=== PATIENT | female | born 1955 | race Caucasian/White ===

== ENCOUNTER → 2018-06-18 07:57 | Outpatient (CLI) | payer BC, SELFPAY ==
--- NOTE | 2018-06-18 08:03 | AS_ITS ---
Renal Arterial Duplex Indications: 405.91 Unspecified renovascular hypertension. IMPRESSIONS 1. The right renal artery appears normal. 2. The left renal artery appears normal. Complete renal arterial duplex. Duplex scan and Doppler flow study including spectral analysis, color and gould scale imaging. Height: Height: 162.6cm. Height: 64in. Weight: Weight: 106.1kg. Weight: 233.5lb. Body mass index: BMI: 40.2kg/m^2. Body surface area: BSA: 2.24m^2. Location: Vascular laboratory. Patient status: Outpatient. Tables: Arterial flow: + +-------+--------+ + Location V sys V ed Comment + +-------+--------+ + Right renal - proximal 120cm/s -------- + +-------+--------+ + Right renal - mid 123cm/s 36.9cm/s + +-------+--------+ + Right renal - distal 138cm/s 33.2cm/s + +-------+--------+ + Left renal - proximal 145cm/s 36.9cm/s + +-------+--------+ + Left renal - mid 193cm/s 48.7cm/s + +-------+--------+ + Left renal - distal 229cm/s 57cm/s Elevated velocities may be attributed to a tortuous vessel. + +-------+--------+ + Right renal - Origin 147cm/s 36cm/s + +-------+--------+ + Left renal - Origin 162cm/s 37cm/s + +-------+--------+ + Aorta 100cm/s 14cm/s + +-------+--------+ + Artery mapping: + +--------+-------+ Location Diameter Patency + +--------+-------+ Abdominal aorta - mid 2.1mm Patent + +--------+-------+ Renal anatomy: + +------+------+ Left Right + +------+------+ Long axis 10.2cm 10.1cm + +------+------+ Short axis 3.4cm 4.4cm + +------+------+ Velocity ratios: + +-----+ V sys + +-----+ Right renal/aortic 1.4 + +-----+ Left renal/aortic 2.3 + +-----+ (Report amended ) Electronically signed by: Alexis Zayas [id number]
== END ==
PROVIDERS: PCP Internal Medicine Adolescent Medicine; Visit Provider Internal Medicine
DX: I10 Essential (primary) hypertension (principal); R42 Dizziness and giddiness; R06.02 Shortness of breath; E66.09 Other obesity due to excess calories
CPT/HCPCS: 93976

== ENCOUNTER → 2018-07-31 13:30 | Outpatient (CLI) | payer BC, SELFPAY | PROVIDERS: PCP Internal Medicine Adolescent Medicine; Visit Provider Internal Medicine Adolescent Medicine | DX: I49.9 Cardiac arrhythmia, unspecified (principal) | CPT/HCPCS: 93225; 93226 ==

== ENCOUNTER → 2019-10-18 11:28 | Outpatient (CLI) | payer BC, SELFPAY | PROVIDERS: PCP Internal Medicine Adolescent Medicine; Visit Provider Urology | DX: R00.2 Palpitations (principal); R06.02 Shortness of breath; I10 Essential (primary) hypertension; R06.83 Snoring; R40.0 Somnolence | CPT/HCPCS: 93270 ==

== ENCOUNTER → 2019-10-22 11:03 | Outpatient (CLI) | payer BC, SELFPAY ==
--- NOTE | 2019-10-22 11:08 | CA_ITS ---
APPROVED REPORT EXAM: Comprehensive 2D, Doppler, and color-flow Echocardiogram Filter Tip Catcher: Yolanda Carbone CRT Ht: 5 ft 4 in Wt: 236lbs BSA: 2.10 BP: 128/88 mmHg Indications: sob, htn. sob 2D Dimensions LVOT 1.76 cm (M/F) 1.5-2.5 M-Mode Dimensions RVDd 2.13 cm (0.9-2.6) LVDd 5.84 cm (3.5-5.7) LVDs 3.70 cm (3.5-5.7) IVSd 1.45 cm (0.6-1.1) PWd 0.88 cm (0.6-1.1) EF (Teich) 65.70% FS 36.60% EDV (Teich) 169.20 mL ESV (Teich) 58.10 mL LV Diastology E/A Ratio 1.04 Mitral Valve MV A Velocity 80.00 (40-130 cm/s) Left Ventricle Left atrium is mildly enlarged, left ventricle is normal size, there is no concentric left ventricular hypertrophy, visually estimated ejection fraction 45% with no regional wall motion abnormality. Diastolic parameters are within normal range. Right Ventricle Right atrium and right ventricular normal size and contractility. Aortic Valve Aortic valve is minimally thickened and fibrosed. There is no aortic stenosis aortic insufficiency. Mitral Valve Mitral valve is grossly normal, there is mild mitral regurgitation. Tricuspid Valve Tricuspid valve is grossly normal, there is mild tricuspid regurgitation. Tricuspid regurgitation jet velocity is inadequate for calculation of the right ventricular systolic pressure. Pulmonic Valve Pulmonic valve is poorly visualized. Great Vessels Aortic root is normal size. Pericardium No significant pericardial effusion noted. Conclusion 1. Normal left ventricular size, preserved left ventricular systolic function, visually estimated ejection fraction 55% with no regional wall motion abnormality, diastolic parameters are within normal range. 2. Mild mitral and tricuspid regurgitation 3. No significant pericardial effusion noted. Electronically signed by : Eliazar Lafleur, 10/22/2019 15:06:41
== END ==
PROVIDERS: PCP Internal Medicine Adolescent Medicine; Visit Provider Internal Medicine
DX: R00.2 Palpitations (principal); R06.02 Shortness of breath; I10 Essential (primary) hypertension; R06.83 Snoring; R40.0 Somnolence
CPT/HCPCS: 93306

== ENCOUNTER → 2021-08-09 08:32 | Outpatient (CLI) | payer MEDICARE, SELFPAY ==
[2021-08-09 09:11] LABS: Basophils % 0.3 % (0.1-2.0); Eosinophils # 0.3 K/mm3 (0.0-0.4); Eosinophils % 3.5 % (0.1-12.0); Hematocrit 40.6 % (37.0-47.0); Hemoglobin 12.5 g/dL (12.2-16.2); Lymphocytes # 1.6 K/mm3 (0.7-4.5); Lymphocytes % 17.6 % (10-50); Mean Corpuscular HGB Conc 30.9 g/dL (31.8-35.4); Mean Corpuscular Hemoglobin 29.3 pg (27.0-31.2); Mean Corpuscular Volume 94.8 fl (81-99); Mean Platelet Volume 8.5 fl (7.4-10.4); Monocytes # 0.7 K/mm3 (0.1-1.0); Monocytes % 7.2 % (1.7-9.3); Neutrophils # 6.6 K/mm3 (1.8-7.8); Neutrophils % 71.4 % (37.0-80.0); Platelet Count 259 K/mm3 (142-424); Red Blood Count 4.28 M/mm3 (4.20-5.40); Red Cell Distribution Width 13.6 % (11.5-17.5); White Blood Count 9.2 K/mm3 (4.8-10.8)
[2021-08-09 10:11] LABS: Alanine Aminotransferase 18 U/L (12-78); Albumin Level 4.1 g/dl (3.5-5.0); Albumin/Globulin Ratio 1.4 (1.1-1.8); Alkaline Phosphatase 87 U/L (38-126); Anion Gap 14.6 mEq/L (5-15); Aspartate Amino Transferase 30 U/L (14-36); Bilirubin,Total 0.5 mg/dl (0.2-1.3); Blood Urea Nitrogen 19 mg/dl (7-17); Calcium 9.5 mg/dl (8.4-10.2); Carbon Dioxide 29 mmol/L (22.0-30.0); Chloride 102 mmol/L (98-107); Chol/HDL Ratio 2.2 (1-3.5); Cholesterol 196 mg/dl (140-200); Estimated Glomerular Filt Rate 50 ml/min (>60); GFR (African American) 60 ML/MIN (>60); Globulin 2.9 g/dL (1.3-3.2); Glucose 106 mg/dl (74-100); HDL Cholesterol 91 mg/dl (40-60); Potassium 4.6 mmoL/L (3.5-5.1); Sodium 141 mmol/L (136-145); Triglycerides 154 mg/dl (30-150); VLDL Cholesterol 31 mg/dL (0-40)
[2021-08-09 10:22] LABS: Direct LDL Cholesterol 65.74 mg/dL (100-129)
== END ==
PROVIDERS: Visit Provider Nurse Practitioner Family
DX: I10 Essential (primary) hypertension (principal); E78.5 Hyperlipidemia, unspecified; Z86.2 Personal history of diseases of the blood and blood-forming organs and certain disorders involving the immune mechanism
CPT/HCPCS: 36415; 80053; 80061; 85025

== ENCOUNTER → 2021-10-16 13:27 | Outpatient (POV) | payer MEDICARE, SELFPAY | PROVIDERS: Visit Provider Dermatology | DX: Z00.00 Encounter for general adult medical examination without abnormal findings (principal) ==

== ENCOUNTER 2022-09-02 12:43 | Emergency (ER) | payer MEDICARE, SELFPAY ==
[2022-09-02 12:43] VITALS: BP 175/80; PULSE 78; RESP 18; TEMP 36.8; O2SAT 94; BMI 41.1
--- NOTE | 2022-09-02 13:03 | XR_ITS ---
FINAL REPORT CLINICAL HISTORY: FB FINDINGS: Two views of the chest were obtained. The heart size and pulmonary vascularity are within normal limits. The mediastinum is normal. No acute pulmonary abnormality is identified. There is no pneumothorax. There is a moderate hiatal hernia. No foreign body is identified. The bony thorax is intact. IMPRESSION: No active cardiopulmonary disease. No foreign body is identified. Reviewed, Interpreted and Dictated by Issa Cortés III, MD Transcribed by Belkis Lantigua Authenticated and [facility]
--- NOTE | 2022-09-02 13:15 | PC.NURSE ---
pt back from Xray
--- NOTE | 2022-09-02 13:18 | HMH.EDGENADL ---
Discharge Plan Disposition Patient Disposition: Home, Self-Care Condition: Good Chief Complaint: Skin/Abscess/Foreign Body Prescriptions Prescriptions: No Action aspirin [Adult Low Dose Aspirin] 81 mg tablet,delayed release (DR/EC) 81 mg PO QDAY bupropion HCl 150 mg tablet extended release 24 hr 300 mg PO QAM levocetirizine 5 mg tablet 5 mg PO QHS polyethylene glycol 3350 [Miralax] 17 gram powder in packet 17 g PO ONCE omeprazole 20 mg capsule,delayed release(DR/EC) 20 mg PO DAILY lisinopril 20 mg tablet 20 mg PO DAILY fluticasone propionate 50 mcg/actuation spray,suspension 1 spray INTRANASAL DAILY atorvastatin 40 mg tablet 40 mg PO HS acetaminophen [Tylenol Arthritis Pain] 650 mg tablet extended release 650 mg PO Q12H lorazepam 0.5 mg tablet 2 mg PO DAILY PRN hydrochlorothiazide 25 mg tablet 25 mg PO DAILY Qty: 30 2RF bisoprolol fumarate 10 mg tablet See Rx Instructions .ROUTE .COMPLEX Qty: 90 3RF Dose Instruction: Take 1 tablet by mouth once daily Rx Instructions: Take 1 tablet by mouth once daily Referrals Follow up/Referrals: Luis Angel Hayes MD [Primary Care Provider] - See instructions Activity Restrictions/Add. Instructions Additional Instructions/Restrictions: Please return to the emergency department immediately if you feel worse in any way. Follow-up with your primary care physician in about 3 days if your symptoms have not resolved. Clinical Impressions Clinical Impression: Esophageal foreign body Discharge ED Provider: Mariusz Rae Adult HPI General Chief complaint: Skin/Abscess/Foreign Body Stated complaint: food stuck in throat Time Seen by Provider: 09/02/22 13:18 Mode of Arrival: Ambulatory Source of Information: Patient Limitations: No Limitations Description of Symptoms (Recalled from ER Triage Doc. by RN): c/o hamburger stuck in her throat which happened just prior to arrival, states she is able to take water and other fliuds at home and she vomitied at home but states the she still feels the hamburger in the side of her throat History of Present Illness HPI narrative: The patient presents to the emergency department because of a foreign body sensation in her throat. She was eating chili earlier prior to arrival. She believes that a piece of ground beef is stuck in her esophagus. However, she has been able to tolerate fluids by mouth at home prior to arrival. Related Data Home Medications Medication Instructions Recorded Confirmed aspirin 81 mg tablet,delayed 81 mg PO QDAY 12/01/17 03/05/22 release (Adult Low Dose Aspirin) bupropion HCl 150 mg 24 hr tablet, 300 mg PO QAM 12/01/17 03/05/22 extended release levocetirizine 5 mg tablet 5 mg PO QHS 12/01/17 03/05/22 polyethylene glycol 3350 17 gram 17 g PO ONCE 12/01/17 03/05/22 oral powder packet (Miralax) lisinopril 20 mg tablet 20 mg PO DAILY 02/13/21 03/05/22 omeprazole 20 mg capsule,delayed 20 mg PO DAILY 02/13/21 03/05/22 release acetaminophen 650 mg 650 mg PO Q12H 03/05/22 03/05/22 tablet,extended release (Tylenol Arthritis Pain) atorvastatin 40 mg tablet 40 mg PO HS 03/05/22 03/05/22 fluticasone propionate 50 1 spray intranasal DAILY 03/05/22 03/05/22 mcg/actuation nasal spray,suspension lorazepam 0.5 mg tablet 2 mg PO DAILY PRN 03/05/22 03/05/22 Previous Rx's Medication Instructions Recorded hydrochlorothiazide 25 mg tablet 25 mg PO DAILY #30 tabs 11/03/18 bisoprolol fumarate 10 mg tablet See Rx Instructions .Route 04/18/22 .COMPLEX #90 tabs Allergies Allergy/AdvReac Type Severity Reaction Status Date / Time alprazolam [From XANAX] Allergy Severe S-SWELLS-OR Verified 03/05/22 14:16 AL/THROAT aripiprazole [From ABILIFY] Allergy Severe S-DIFF. Verified 03/05/22 14:16 [facility] Social History Smoking Status: Geovani
[2022-09-02 13:45] VITALS: BP 166/75; PULSE 70; RESP 20; TEMP 36.8; O2SAT 95
== END 2022-09-02 13:46 | disposition home or self-care (01) ==
PROVIDERS: Emergency Provider Emergency Medicine; PCP Internal Medicine Adolescent Medicine
DX: T18.128A Food in esophagus causing other injury, initial encounter (principal); Z79.1 Long term (current) use of non-steroidal anti-inflammatories (NSAID); Z79.51 Long term (current) use of inhaled steroids; Z79.82 Long term (current) use of aspirin; Z79.899 Other long term (current) drug therapy; Z88.8 Allergy status to other drugs, medicaments and biological substances
CPT/HCPCS: 71046; 99283

== ENCOUNTER → 2022-09-05 08:46 | Outpatient (CLI) | payer MEDICARE, SELFPAY ==
--- NOTE | 2022-09-05 08:50 | XR_ITS ---
FINAL REPORT TECHNIQUE: Bone mineral density was calculated of the lumbar spine and hip. CLINICAL HISTORY: . screening FINDINGS: DEXA BONE DENSITY AXIAL SKELETON Using L1-4, the bone mineral density of the spine is 1.020 g/cm2, corresponding to T-score of there is -0.2. Using the left hip, the bone mineral density of the femoral neck is 0.788 g/cm2, corresponding to a T-score of -0.5. NOTE: T-score: Standard deviation compared with peak bone mass of young adult mean. *Following the recommendations of the International Society of Bone densitometry, classification of hip BMD is based on the lower of two T-scores; total hip or femoral neck. IMPRESSION: Normal bone mineral density of the lumbar spine and hip. Reviewed, Interpreted and Dictated by Issa Cortés III, MD Transcribed by Belkis Lantigua Authenticated and . [facility]
== END ==
PROVIDERS: PCP Nurse Practitioner Family; Visit Provider Nurse Practitioner Family
DX: Z78.0 Asymptomatic menopausal state (principal)
CPT/HCPCS: 77080

== ENCOUNTER 2024-07-15 08:39 | Day surgery (SDC) | payer MEDICARE, SELFPAY ==
[2024-07-14 10:43] VITALS: BMI 41.7
[2024-07-15] MEDS: LACTATED RINGERS 1000ML 1,000 ML 25 ML IV (08:48)
[2024-07-15 08:53] VITALS: BP 163/85; PULSE 73; RESP 18; TEMP 36.2; O2SAT 95
[2024-07-15 09:51] VITALS: O2SAT 95
[2024-07-15 10:05] VITALS: BP 131/79; PULSE 61; RESP 14; TEMP 36.3; O2SAT 94
--- NOTE | 2024-07-15 10:06 | HMH.SCOPE ---
Procedure: Date: 07/15/24 Patient Date of :: 1955 Procedure Performed:: Screening colonoscopy Indications:: Colon screening Performing Provider:: Whitney Emery MD Referring Provider:: Luis Angel Hayes MD Sedation:: Propofol Procedure:: After placing the patient in the left lateral decubitus position, the colonoscopy was gently inserted into the rectum and under direct visualization advanced to the cecum which was identified by transillumination in the right lower quadrant, identification of the ileocecal valve, appendiceal orifice, and cecal strap. Color, texture, mucosa, and anatomy of the colon were carefully examined with the scope. Findings:: Anal canal: normal Rectum: normal Sigmoid colon: normal without polyps or inflammatory changes Descending colon: normal without polyps or inflammatory changes Splenic flexure: normal Transverse colon: normal without polyps or inflammatory changes Hepatic flexure: normal Ascending colon: normal without polyps or inflammatory changes Cecum: normal Terminal ileum: not visualized Impression: Normal colonoscopy Recommendations:: Follow up examination in about TEN years or so, sooner if clinically indicated. Complications:: None Estimated blood obtained (mL): 0 Colonoscopy Component Colonoscopy Component Was a colonoscopy performed during today's procedure?: Yes Recommended follow up colonoscopy of at least 10 years?: Yes
[2024-07-15 10:15] VITALS: BP 138/71; PULSE 63; RESP 14; O2SAT 95
[2024-07-15 10:25] VITALS: BP 128/81; PULSE 60; RESP 16; O2SAT 98
[2024-07-15 10:35] VITALS: BP 148/75; PULSE 59; RESP 16; O2SAT 97
== END 2024-07-15 10:33 | disposition home or self-care (01) ==
PROVIDERS: PCP Internal Medicine Adolescent Medicine; Visit Provider Internal Medicine Gastroenterology
PROC: 0DJD8ZZ Inspection of Lower Intestinal Tract, Via Natural or Artificial Opening Endoscopic (ICD-10-PCS; CPT 45378; principal; 2024-07-15 10:00)
DX: Z12.11 Encounter for screening for malignant neoplasm of colon (principal)
CPT/HCPCS: G0121; J7120

== ENCOUNTER 2024-10-19 11:15 | Outpatient (POV) | payer MEDICARE, SELFPAY | END 2024-10-19 23:59 | disposition home or self-care (01) | LOC: SC 10-20 06:52 | PROVIDERS: Visit Provider Dermatology | DX: Z00.00 Encounter for general adult medical examination without abnormal findings (principal) ==

== ENCOUNTER 2024-11-17 13:12 | Outpatient (CLI) | payer MEDICARE, SELFPAY ==
--- NOTE | 2024-11-17 13:15 | US_ITS ---
FINAL REPORT CLINICAL HISTORY: STAGE 3 CHRONIC KIDNEY DISEASE COMPARISON: none FINDINGS: RENAL ULTRASOUND Ultrasound images of the kidneys were obtained. Limited images of the liver parenchyma demonstrates normal echogenicity. The right kidney measures 10.0 cm in length. The left kidney measures 11.3 cm in length. There is a 13 mm cyst in the mid left kidney. The kidneys are normal in size. There is no hydronephrosis. Kidneys demonstrate a normal echo pattern. IMPRESSION: Unremarkable renal ultrasound. Reviewed, Interpreted and Dictated by Christian Scales MD Transcribed by Kimber Alfaro Authenticated and [facility]
== END 2024-11-17 23:59 | disposition home or self-care (01) ==
LOC: RAD 13:13
PROVIDERS: PCP Internal Medicine Adolescent Medicine; Visit Provider Nurse Practitioner Family
DX: N18.31 Chronic kidney disease, stage 3a (principal)
CPT/HCPCS: 76770

== ENCOUNTER 2025-10-31 08:43 | Outpatient (CLI) | payer MEDICARE, SELFPAY ==
--- NOTE | 2025-10-31 08:46 | XR_ITS ---
FINAL REPORT TECHNIQUE: Bone densitometry calculations of the lumbar spine and bilateral hips were obtained. CLINICAL HISTORY: SCREENING COMPARISON: 09/05/2022 FINDINGS: Using L1-4, the bone mineral density of the spine is 1.022 g/cm2, corresponding to T-score of -0.2 and a Z score of 1.9. This is within the range of normal. The bone mineral density change versus baseline is 0.2%. Using the left hip, the bone mineral density of the femoral neck is 0.802 g/cm2, corresponding to a T-score of -0.4 and a Z-score of 1.3. This is within the range of normal. The bone mineral density change versus baseline is 1.8%. Using the right hip, the bone mineral density of the femoral neck is 0.835 g/cm?, corresponding to a T-score of -0.1 and a Z-score of 1.6. This is within the range of normal. The bone mineral density change versus baseline is 1.1% NOTE: T-score: Standard deviation compared with peak bone mass of young adult mean. *Following the recommendations of the International Society of Bone densitometry, classification of hip BMD is based on the lower of two T-scores; total hip or femoral neck. IMPRESSION: 1. Bone mineral density of the lumbar spine within the range of normal. 2. Bone mineral density of the bilateral femoral necks within the range of normal. Reviewed, Interpreted and Dictated by Deepali Doss MD Transcribed by Graciela Patel Authenticated and . [facility]
--- OUTSIDE RECORDS SUMMARY | 2025-10-31 09:00 | XMS_ITS | Clinical Summary ---
Author Organization [facility] Address [address] [place] [address] Care Team Providers Care Product Picker Name Role Phone Luis Angel Hayes MD Primary Care Provider [phone] Allergies Active Allergy Reactions Criticality Noted Date Comments Aripiprazole 08/06/2016 Ciprofloxacin Nausea Only 08/13/2017 Sulfamethoxazole-Trimethoprim Itching 2016 Vilazodone Hcl Hallucinations 08/13/2017 Alprazolam Swelling 08/13/2017 Medications amLODIPine (NORVASC) 2.5 MG tablet Take 1 tablet by mouth Daily. 08/04/20 17 Active bisoprolol (ZEBeta) 5 MG tablet Take 1 tablet by mouth Daily. 08/04/20 17 Active buPROPion XL (WELLBUTRIN XL) 300 MG 24 hr tablet Take 1 tablet by mouth Daily. 06/30/20 17 Active buPROPion XL (WELLBUTRIN XL) 150 MG 24 hr tablet Take 1 tablet by mouth Daily. 06/19/20 17 Active FLUARIX QUADRIVALENT 0.5 ML suspension prefilled syringe injection inject 0.5 milliliter intramuscularly 0 07/18/20 17 Active lisinopril-hydro chlorothiazide (PRINZIDE,ZESTOR ETIC) 20-25 MG per tablet Take 1 tablet by mouth Daily. 06/05/20 17 Active LORazepam (ATIVAN) 0.5 MG tablet Take 1 tablet by mouth Every Night. 08/11/20 17 Active omeprazole (priLOSEC) 40 MG capsule Take 1 capsule by mouth Daily. 08/04/20 17 Active simvastatin (ZOCOR) 20 MG tablet Take 1 tablet by mouth Daily. 07/26/20 17 Active Active Problems Problem Noted Date Diagnosed Date Post-menopause on HRT (hormone replacement thera py) Hypertension Hyperlipidemia GERD (gastroesophageal reflux disease) Depression Anxiety Family History Medical History Relation Name Comments Breast cancer Maternal Grandmother Ovarian cancer Neg Hx Relation Name Status Comments Maternal Grandmother Social History Tobacco Use Types Packs/Day Years Used Date Smoking Tobacco: Never Smokeless Tobacco: Never Alcohol Use Standard Drinks/Week Comments No 0 (1 standard drink = 0.6 oz pur e alcohol) Comments No Sex and Gender Information Value Date Recorded Sex Assigned at Not on file Legal Sex Female 10:28 AM EDT Gender Identity Not on file Sexual Orientation Not on file Last Filed Vital Signs Vital Sign Reading Time Taken Comments Blood Pressure 102/70 08/13/2017 3:24 PM EDT Pulse - - Temperature - - Respiratory Rate 14 08/06/2016 3:06 PM EDT Oxygen Saturation - - Inhaled Oxygen Concentration - - Weight 107 kg (235 lb 12.8 oz) 08/13/2017 3:24 P M EDT Height 162.6 cm (5' 4 ) 08/13/2017 3:24 PM EDT Body Mass Index 40.47 08/13/2017 3:24 PM EDT Plan of Treatment Health Maintenance Due Date Last Done Comments DXA SCAN 1955 LIPID PANEL 1955 TDAP/TD VACCINES (1 - Tdap) 1975 COLOGUARD 2001 COLON CANCER SCREENING 5 YEA R SIGMOIDOSCOPY 2001 COLONOSCOPY [address]ER SCREENING [address] CT COLONOGRAPHY 2001 FECAL OCCULT BLOOD TEST 2001 FIT Testing (1 year) 2001 ZOSTER VACCINE (1 of 2) 2006 ANNUAL PHYSICAL 07/25/2016 HEPATITIS C SCREENING 07/25/2016 INFLUENZA VACCINE 07/01/2025 08/20/2023, , 08/08/2021, Additional history exists COVID-19 Vaccine (2024-2 6 season) 2025 09/13/2023, 09/11/2022, 03/22/2022, Additional history exists MAMMOGRAM 06/09/2027 06/09/2025, 07/2024, 06/06/2023, Additional history exists Pneumococcal Vaccine 50+ Completed 08/09/2022, 07/2021 Procedures Procedure Name Priority Date/Time Associated Diagnosis Comments MAMMO SCREENING DIGITAL TOMOSYNTHESIS BILATERAL W CAD Routine 06/09/2025 2:02 PM EDT Screening mammogram for breast cancer from Last 3 Months or Most Recently Relevant to Health Maintenance Results * Mammo Screening Digital Tomosynthesis Bilateral With CAD (06/09/2025 2:02 PM EDT) Anatomical Region Laterality Modality Breast N/A Mammography 06/14/2025 12:5 8 PM EDT Impressions 06/14/2025 1:00 PM EDT No suspicious abnormality identified. OVERALL ASSESSMENT: ACR BI-RADS CATEGORY: 1, NEGATIVE: Recommend continued routine annual screening mammogram. The standard false-negative rate of mammography is between 10% and 25%. Complex patterns or increased breast density will markedly elevate the false-negative rate of mammography. A letter, in lay terminology, with the results of this exam will be mailed to the patient. 06/14/2025 1:00 PM by Lupe Noble MD on Narrative 06/14/2025 1:00 PM EDT BILATERAL DIGITAL SCREENING MAMMOGRAM WITH TOMOSYNTHESIS CLINICAL INDICATION: Screening mammogram. TECHNIQUE: Bilateral low dose full field digital breast tomosynthesis imaging was performed. CAD was utilized. Best images possible per technologist notes COMPARISON: Prior studies dating back to 09/25/2017. FINDINGS: The breast are almost entirely fatty. RIGHT BREAST: No suspicious masses, calcifications, or areas of distortion are seen. LEFT BREAST: No suspicious masses, calcifications, or areas of distortion are seen. Luis Angel Hayes MD IMG MAMMOGRAPHY ORDERABLES F inal Result from Last 3 Months or Most Recently Relevant to Health [place] [id number] [facility] [employer] PPO Care Teams Product Picker Relationship Specialty Start Date End Date Luis Angel Hayes MD Critical access hospital[facility] [address] [place] [address] PCP - General Adolescent Medicine 07/25/16
== END 2025-10-31 23:59 ==
LOC: RAD 08:44
PROVIDERS: PCP Internal Medicine Adolescent Medicine; Visit Provider Nurse Practitioner Family
DX: Z13.820 Encounter for screening for osteoporosis (principal); Z78.0 Asymptomatic menopausal state
CPT/HCPCS: 77080